=== PATIENT | male | born 1975 ===

== ENCOUNTER 2017-01-26 22:31 | Emergency (ER) | payer SELFPAY ==
[2017-01-26 23:38] VITALS: BP 145/79
== END 2017-01-26 23:51 | disposition left against medical advice (07) ==
LOC: ED 22:31
DX: S61.219A Laceration without foreign body of unspecified finger without damage to nail, initial encounter (principal); X58.XXXA Exposure to other specified factors, initial encounter; Y93.9 Activity, unspecified; Y92.9 Unspecified place or not applicable; Z53.21 Procedure and treatment not carried out due to patient leaving prior to being seen by health care provider